=== PATIENT | female | born 1925 | race Caucasian/White ===

== ENCOUNTER 2017-05-19 14:18 | Emergency (ER) | payer MEDICARE ==
--- NOTE | 2017-05-19 14:49 | ER Document Report ---
ED Medical Screen (RME) - General Chief Complaint: Fall Injury Stated Complaint: FALL/TAILBONE PAIN Time Seen by Provider: 05/19/17 14:47 Notes: Patient got her feet tangled and fell. She hit her right shoulder and her tailbone and her right thigh. She is able to stand and walk. Has large bruises visible over the right shoulder and right lateral proximal thigh. Denies any head injury or loss of consciousness. No neurologic deficits. No rib pain or difficulty breathing. No abdominal pains. TRAVEL OUTSIDE OF THE [place] IN LAST 30 DAYS: No - Related Data Allergies/Adverse Reactions: meperidine HCl [From Demerol] Allergy (Severe, Verified 05/19/17 14:38) N&V "Pure" Iodine Allergy (Severe, Uncoded 11/24/14 12:21) Burned skin badly (Betadine ok) Past Medical History - Past Medical History Cardiac Medical History: Reports: Hx Hypercholesterolemia Denies: Hx Coronary Artery Disease, Hx Heart Attack Pulmonary Medical History: Reports: Hx Bronchitis, Hx COPD Denies: Hx Asthma, Hx Pneumonia Neurological Medical History: Denies: Hx Cerebrovascular Accident, Hx Seizures Musculoskeltal Medical History: Reports Hx Arthritis - Osteoarthritis, Osteoporosis Past Surgical History: Reports: Hx Genitourinary Surgery - bladder, Hx Gynecologic Surgery - hysterectomy, Hx Hysterectomy, Hx Orthopedic Surgery - neck and back - Immunizations Hx Diphtheria, Pertussis, Tetanus Vaccination: - unsure Physical Exam - Vital signs Vitals: Temp Pulse Resp BP Pulse Ox 98.3 F 84 12 137/89 H 98 05/19/17 14:38 05/19/17 14:38 05/19/17 14:38 05/19/17 14:38 05/19/17 14:38 Course - Vital Signs Vital signs: Temp Pulse Resp BP Pulse Ox 98.3 F 84 12 137/89 H 98 05/19/17 14:38 05/19/17 14:38 05/19/17 14:38 05/19/17 14:38 05/19/17 14:38
--- NOTE | 2017-05-19 16:05 | RADIOLOGY REPORT (SQ) ---
EXAM DESCRIPTION: SACRUM AND COCCYX COMPLETED DATE/TIME: 05/19/2017 3:18 pm REASON FOR STUDY: Fell and injured butt COMPARISON: None. NUMBER OF VIEWS: Three views. TECHNIQUE: AP, lateral, and tilt views of the sacrum and coccyx. LIMITATIONS: None. FINDINGS: MINERALIZATION: Osteoporotic BONES: On the lateral view, there is mild buckling of the bony cortex of the distal sacrum adjacent t o the sacrococcygeal junction. This likely represents a nondisplaced fracture. SOFT TISSUES: [place] myelogram contrast over the sacral canal OTHER: No other significant finding. IMPRESSION: Hairline fracture with minimal cortical buckling in the distal tip of the sacrum near th e sacrococcygeal junction. TECHNICAL DOCUMENTATION: JOB ID: [id number] [employer]- All Rights Reserved
--- NOTE | 2017-05-19 16:06 | RADIOLOGY REPORT (SQ) ---
EXAM DESCRIPTION: SHOULDER RIGHT 2 OR MORE VIEWS COMPLETED DATE/TIME: 05/19/2017 3:18 pm REASON FOR STUDY: Fall and injured right shoulder COMPARISON: None. NUMBER OF VIEWS: Three views. TECHNIQUE: Internal rotation, external rotation, and Y view images acquired of the right shoulder. LIMITATIONS: None. FINDINGS: MINERALIZATION: Osteoporotic BONES: No acute fracture or dislocation. No worrisome bone lesions. JOINTS: No glenohumeral dislocation. Mild acromioclavicular joint bony spurring. VISUALIZED LUNGS AND RIBS: No pneumothorax. No rib fracture. SOFT TISSUES: No radiopaque foreign body. OTHER: No other significant finding. IMPRESSION: No acute fracture or malalignment TECHNICAL DOCUMENTATION: JOB ID: [id number] [employer]- All Rights Reserved
--- NOTE | 2017-05-19 16:10 | RADIOLOGY REPORT (SQ) ---
EXAM DESCRIPTION: HIP RIGHT AP/LATERAL COMPLETED DATE/TIME: 05/19/2017 3:18 pm REASON FOR STUDY: Fell and injured hip COMPARISON: None. NUMBER OF VIEWS: Two views, AP pelvis and frog lateral right hip. LIMITATIONS: None. FINDINGS: Osteopenic. Lower lumbar spondylosis. No displaced pelvic fracture evident. Degenerativ e hip narrowing and spurring, fairly symmetric. No hip fracture. OTHER: Large volume stool. IMPRESSION: Osteopenia and degenerative changes. No hip or pelvic fracture identified. TECHNICAL DOCUMENTATION: JOB ID: [id number]
[2017-05-19] MEDS ORDERED: LIDOCAINE 5% (700 MG) TRANSDERMAL ADH..PATCH TP ONE (16:51)
--- NOTE | 2017-05-19 16:57 | ER Document Report ---
ED General - General Chief Complaint: Fall Injury Stated Complaint: FALL/TAILBONE PAIN Time Seen by Provider: 05/19/17 14:47 TRAVEL OUTSIDE OF THE [place] IN LAST 30 DAYS: No - HPI Patient complains to provider of: Fall tailbone pain Notes: Patient coming in for evaluation of tailbone pain. Patient states she fell on however continues to have coccyx pain. Patient also complains of right hip and right shoulder pain. Denies any fever chills nausea vomiting denies any loss consciousness. Patient states that she slipped and fell. - Related Data Allergies/Adverse Reactions: meperidine HCl [From Demerol] Allergy (Severe, Verified 05/19/17 14:38) N&V "Pure" Iodine Allergy (Severe, Uncoded 11/24/14 12:21) Burned skin badly (Betadine ok) Past Medical History - Social History Smoking Status: Unknown if Ever Smoked Chew tobacco use (# tins/day): No Frequency of alcohol use: None Drug Abuse: None Family History: Reviewed & Not Pertinent Patient has suicidal ideation: No Patient has homicidal ideation: No - Past Medical History Cardiac Medical History: Reports: Hx Hypercholesterolemia Denies: Hx Coronary Artery Disease, Hx Heart Attack Pulmonary Medical History: Reports: Hx Bronchitis, Hx COPD Denies: Hx Asthma, Hx Pneumonia Neurological Medical History: Denies: Hx Cerebrovascular Accident, Hx Seizures Renal/ Medical History: Denies: Hx Peritoneal Dialysis Musculoskeltal Medical History: Reports Hx Arthritis - Osteoarthritis, Osteoporosis Past Surgical History: Reports: Hx Genitourinary Surgery - bladder, Hx Gynecologic Surgery - hysterectomy, Hx Hysterectomy, Hx Orthopedic Surgery - neck and back - Immunizations Hx Diphtheria, Pertussis, Tetanus Vaccination: - unsure Hx Pneumococcal Vaccination: 03/24/14 Review of Systems - Review of Systems Constitutional: No symptoms reported EENT: No symptoms reported Cardiovascular: No symptoms reported Respiratory: No symptoms reported Gastrointestinal: No symptoms reported Genitourinary: No symptoms reported Female Genitourinary: No symptoms reported Musculoskeletal: Other - K[place] pain right shoulder right hip pain Skin: No symptoms reported Hematologic/Lymphatic: No symptoms reported Neurological/Psychological: No symptoms reported Physical Exam - Vital signs Vitals: Temp Pulse Resp BP Pulse Ox 98.3 F 84 12 137/89 H 98 05/19/17 14:38 05/19/17 14:38 05/19/17 14:38 05/19/17 14:38 05/19/17 14:38 Interpretation: Normal - General General appearance: Appears well, Alert - HEENT Head: Normocephalic, Atraumatic Eyes: Normal Pupils: PERRL - Respiratory Respiratory status: No respiratory distress Chest status: Nontender Breath sounds: Normal Chest palpation: Normal - Cardiovascular Rhythm: Regular Heart sounds: Normal auscultation Murmur: No - Abdominal Inspection: Normal Distension: No distension Bowel sounds: Normal Tenderness: Nontender Organomegaly: No organomegaly - Rectal Notes: Pain to palpation of the tailbone - Back Back: Normal, Nontender - Extremities General upper extremity: Normal inspection, Nontender, Normal color, Normal ROM , Normal temperature General lower extremity: Normal inspection, Nontender, Normal color, Normal ROM , Normal temperature, Normal weight bearing. No: Steve's sign - Neurological Neuro grossly intact: Yes Cognition: Normal Orientation: AAOx4 [place] Coma Scale Eye Opening: Spontaneous [place] Coma Scale Verbal: Oriented [place] Coma Scale Motor: Obeys Commands [place] Coma Scale Total: 15 Speech: Normal Motor strength normal: LUE, RUE, LLE, RLE Sensory: Normal - Psychological Associated symptoms: Normal affect, Normal mood - Skin Skin Temperature: Warm Skin Moisture: Dry Skin Color: Normal Course - Re-evaluation Re-evalutation: 05/19/17 18:02 Patient was a fracture of her tailbone. Patient is [place] on tramadol at home. We will get patient lidocaine gel and patch here. She was encouraged follow-up primary care physician for further pain control if needed however did explain to patient at this time not much weight we can do for a coccyx fracture - Vital Signs Vital signs: Temp Pulse Resp BP Pulse Ox 98.3 F 84 12 137/89 H 98 05/19/17 14:38 05/19/17 14:38 05/19/17 14:38 05/19/17 14:38 05/19/17 14:38 Discharge - Discharge Clinical Impression: Fracture of coccyx Qualifiers: Encounter type: initial encounter Fracture type: closed Qualified Code(s): S32.2XXA - Fracture of coccyx, initial encounter for closed fracture Instructions: Coccyx Fracture ([facility]) Additional Instructions: Follow-up with primary care physician. At this time you to have a broken tailbone according to your x-ray. Forces not anything that we will do to fix this and will have to heal up on its own. You may use the lidocaine cream as prescribed. Continue tramadol at home follow-up with your primary care physician for further pain control if needed. Prescriptions: Lidocaine [Lmx 5] 30 gm TP QID #1 bottle Referrals: RON BAUTISTA MD [Primary Care Provider] - Follow up as needed
[2017-05-19 18:13] VITALS: BP 148/56
== END 2017-05-19 18:13 | disposition home or self-care (01) ==
LOC: ER 14:18
DX: S32.2XXA Fracture of coccyx, initial encounter for closed fracture (principal); W01.0XXA Fall on same level from slipping, tripping and stumbling without subsequent striking against object, initial encounter; E78.00 Pure hypercholesterolemia, unspecified; Z90.710 Acquired absence of both cervix and uterus
CPT/HCPCS: 72220; 99283